=== PATIENT | female | born 1940 | race African-American/Black ===

== ENCOUNTER 2025-01-06 13:15 | Emergency (ER) | payer MEDICARE, BC ==
[~2025-01-06] VITALS: Ht 167.6 cm; Wt 70.0 kg
[2025-01-06 13:17] VITALS: O2SAT 99
[2025-01-06] MEDS: AMLODIPINE 5MG TABLET PO ONE (14:05)
[2025-01-06 14:26] LABS: BASOPHILS % 1.3 % (0.0-2.0); EOSINOPHILS % 0.4 % (0.0-5.0); HEMATOCRIT. 40.5 % (36.0-48.0); HEMOGLOBIN. 12.9 g/dL (12.0-16.0); LYMPHOCYTES % 18.4 % (20.0-50.0); MEAN PLATELET VOLUME 9.1 fl (7.4-10.4); MONOCYTES % 4.6 % (2.0-8.0); NEUTROPHILS % 75.3 % (40.0-76.0); PLATELET 233 x1000/uL (130-400); RED BLOOD CELL COUNT 5.30 mill/uL (4.2-5.4); RED CELL DISTRIBUTION WIDTH 14.4 % (11.6-14.6)
[2025-01-06] MEDS ORDERED: HYDRALAZINE 20MG/ML VIAL IV PRN (14:30)
[2025-01-06 14:37] LABS: CREATININE 0.9 mg/dL (0.6-1.0); TROPONIN I HIGH SENSITIVITY 4 ng/L (3.0-34); UREA NITROGEN BLOOD 18 mg/dL (9-23)
[2025-01-06 14:38] LABS: ASPARTATE AMINOTRANSFERASE 17 IU/L (<34)
[2025-01-06 14:39] LABS: BILIRUBIN DIRECT 0.2 mg/dL (<=3.0); BILIRUBIN TOTAL 0.5 mg/dL (0.1-1.0); PROTEIN TOTAL 7.8 g/dL (6.0-8.3)
[2025-01-06] MEDS: POTASSIUM CHLORIDE 20MEQ/PACKET PO SCH (15:26)
[2025-01-06] MEDS: LOSARTAN 25 MG TABLET PO SCH (15:26)
[2025-01-06] MEDS: MAGNESIUM 2 G PREMIX 50 ML IV SCH (15:26)
[2025-01-06] MEDS ORDERED: IOHEXOL-350 100 ML BOTTLE ONE (16:14)
[2025-01-06] MEDS: CLONIDINE 0.2MG TABLET PO SCH (17:00)
[2025-01-06 17:08] VITALS: BP 138/92; PULSE 68; RESP 16; TEMP 36.7; O2SAT 99
[2025-01-06] MEDS ORDERED: POTASSIUM CHLORIDE 20MEQ/PACKET PO SCH (19:00)
[2025-01-06] MEDS ORDERED: AMLODIPINE 5MG TABLET PO SCH (21:00)
[2025-01-07] MEDS ORDERED: IOHEXOL-350 100 ML BOTTLE ONE (00:07)
[2025-01-07] MEDS ORDERED: EMPAGLIFLOZIN 25MG TABLET PO SCH (09:00)
[2025-01-07] MEDS ORDERED: HYDROCHLOROTHIAZIDE 25MG TABLET PO SCH (09:00)
== END 2025-01-06 17:26 | disposition home or self-care (01) ==
LOC: ER 13:15
DX: I10 Essential (primary) hypertension (principal); E11.9 Type 2 diabetes mellitus without complications; E78.00 Pure hypercholesterolemia, unspecified; I25.2 Old myocardial infarction; R06.02 Shortness of breath; Z79.899 Other long term (current) drug therapy; Z90.710 Acquired absence of both cervix and uterus; Z96.659 Presence of unspecified artificial knee joint
CPT/HCPCS: 99291; 74174; 96365; 71275; 71045; 80076; 80048; 83880; 83735; 85025; 84484; 36415; 93005; Q9967; J3475